=== PATIENT | female | born 1995 | race African-American/Black ===

== ENCOUNTER 2024-03-27 07:22 | Outpatient (CLI) | payer BC ==
[~2024-03-27] VITALS: Ht 162.6 cm; Wt 121.4 kg
[2024-03-27] MEDS ORDERED: NS 1,000 ML IV ONE (07:45)
[2024-03-27 07:47] LABS: COLLECTION METHOD CLEAN CATCH
[2024-03-27 07:50] LABS: BASO # 0.1 K/mm3 (0.0-0.2); BASO % 0.4 % (0.0-2.0); EOS # 0.2 K/mm3 (0.0-0.7); EOS % 0.9 % (0.0-4.0); GRAN # 15.8 K/mm3 (1.4-6.5); HEMATOCRIT 45.4 % (37.0-47.0); LYMPH # 1.8 K/mm3 (1.2-3.4); LYMPH % 9.2 % (20.0-51.0); MEAN CELL VOLUME 89 fl (80.0-100.0); MEAN CORPUSCULAR HEMOGLOBIN 30 pg (27-31); MEAN CORPUSCULAR HGB CONC 33 g/dl (33.0-37.0); MEAN PLATELET VOLUME 9.3 fl (7.4-10.4); MONO # 1.2 K/mm3 (0.1-0.6); MONO % 6.2 % (1.7-9.3); PLATELET COUNT 388 K/mm3 (130-400); RED BLOOD COUNT 5.08 M/mm3 (4.10-5.30); REDCELL DISTRIBUTION WIDTH-CV 14.2 % (11.5-14.5)
[2024-03-27 07:57] LABS: URINE APPEARANCE CLEAR (CLEAR/HAZY); URINE BLOOD 3+ (NEGATIVE); URINE COLOR YELLOW (YELLOW); URINE GLUCOSE NEGATIVE (NEGATIVE); URINE KETONE NEGATIVE (NEGATIVE); URINE NITRATE NEGATIVE (NEGATIVE); URINE PROTEIN(semi-quant) NEGATIVE (NEGATIVE); URINE UROBILINOGEN 0.2 E.U/dL (0.2-1.0)
[2024-03-27 08:06] LABS: ALBUMIN 3.7 g/dL (3.5-5.0); BILIRUBIN,TOTAL 0.5 mg/dL (0.2-1.2); CALCIUM 9.8 mg/dL (8.4-10.2); CREATININE, serum 0.95 mg/dL (0.57-1.11); POTASSIUM 4.1 mEq/L (3.5-4.5); TOTAL PROTEIN 6.7 g/dl (6.2-8.1)
[2024-03-27] MEDS ORDERED: methylPREDNISolone Sod Succ 125 MG/2 ML VIAL IV ONE (08:15)
[2024-03-27] MEDS ORDERED: Ondansetron 4 MG/2 ML VIAL IV ONE (08:15)
[2024-03-27] MEDS ORDERED: diphenhydrAMINE 50 MG/ML 1 ML VIAL IV ONE (08:15)
[2024-03-27] MEDS ORDERED: Morphine 4 MG/ML VIAL IV ONE ×2 (08:15→09:45)
[2024-03-27] MEDS ORDERED: NS 100 ML IV SCH (08:16)
[2024-03-27] MEDS ORDERED: Iohexol 300 - 100 ML VIAL IV ONE (08:16)
[2024-03-27] MEDS ORDERED: droPERidol 2.5 MG/ML 2 ML VIAL IV ONE (09:45)
[2024-03-27] MEDS ORDERED: droPERidol 2.5 MG/ML 2 ML VIAL IV PRN (10:00)
[2024-03-27] MEDS ORDERED: HYDROmorphone 1 MG/1 ML SYRINGE [PACU/SDC ONLY] IV PRN (10:00)
[2024-03-27] MEDS ORDERED: Ondansetron 4 MG/2 ML VIAL IV PRN ×3 (10:00→12:15)
[2024-03-27] MEDS ORDERED: hydrALAZINE 20 MG/ML 1 ML VIAL IV PRN (10:00)
[2024-03-27] MEDS ORDERED: Scopolamine 1 MG Delivered 3-Day PATCH TD SCH (10:00)
[2024-03-27] MEDS ORDERED: LR 1,000 ML IV SCH (10:00)
[2024-03-27] MEDS ORDERED: fentaNYL 50 MCG/ML 2 ML VIAL ONE (10:25)
[2024-03-27] MEDS ORDERED: Lidocaine PF 2% (20 MG/ML) 5 ML VIAL ONE (10:25)
[2024-03-27] MEDS ORDERED: Ondansetron 4 MG/2 ML VIAL ONE (10:26)
[2024-03-27] MEDS ORDERED: Ketorolac 30 MG/ML VIAL ONE (10:26)
[2024-03-27] MEDS ORDERED: Glycopyrrolate 0.2 MG/ML 1 ML VIAL ONE (10:26)
[2024-03-27] MEDS ORDERED: NS 20 ML IV ONE (10:26)
[2024-03-27] MEDS ORDERED: dexAMETHasone 10 MG/ML VIAL ONE (10:26)
[2024-03-27] MEDS ORDERED: Acetaminophen 325 MG TAB PO PRN (11:00)
[2024-03-27] MEDS ORDERED: Naloxone 0.4 MG/ML VIAL IV PRN (11:00)
[2024-03-27] MEDS ORDERED: Hyoscyamine 0.125 MG Sublingual TAB SL PRN (11:00)
[2024-03-27] MEDS ORDERED: Iohexol 300 - 10 ML VIAL URETER -L ONE (11:17)
[2024-03-27] MEDS ORDERED: Furosemide 40 MG/4 ML VIAL ONE (11:22)
[2024-03-27] MEDS ORDERED: Lidocaine 2% (20 MG/ML) 20 ML UROJET UR ONE (11:26)
[2024-03-27] MEDS ORDERED: Acetaminophen 500 MG TAB PO SCH ×2 (11:57)
[2024-03-27 12:05] VITALS: BP 143/91; PULSE 56; TEMP 98.3
[2024-03-27] MEDS ORDERED: D5NS & 20 mEq KCl 1,000 ML IV SCH (12:15)
[2024-03-27] MEDS ORDERED: Morphine 4 MG/ML VIAL IV PRN (12:15)
[2024-03-27 12:20] VITALS: BP 142/85; PULSE 48
--- NOTE | 2024-03-27 12:21 | NUR ---
Pt arrived to the floor from [place]. She is alert and oriented. She is stating her pain is around 4/10, but that it is her normal pain from fibromyalgia. Pt states right now her shoulders are what is bothering her the most. Pt does have a friend with her in the room. Gave pt some applesauce, water and juice. Pt not wanting lunch at this time. VSS. Discussed plan of care and plan for discharge
[2024-03-27 12:35] VITALS: BP 145/81; PULSE 50
--- NOTE | 2024-03-27 12:39 | NUR ---
Pt has tolerated ice water, apple juice and apple sauce with no complaints. Pt reported that she has had kidney stones in the past and is comfortable going home as well as ready to go home. Pt has voided without difficulty. VSS, informed her that i will work on paperwork
--- NOTE | 2024-03-27 13:08 | NUR ---
Reviewed discharge instructions with pt. All questions answered. INT removed from right AC and pt escorted out
== END 2024-03-27 13:00 | disposition home or self-care (01) ==
LOC: COL.ER 07:22 → SDCO 07:22 → COL.ER 10:15 → SDCO 10:15 → EDSTATUS 11:36 → SDCO 13:00
PROVIDERS: Personal Emergency Response Attendant
DX: N20.1 Calculus of ureter (principal); Z87.891 Personal history of nicotine dependence
CPT/HCPCS: C1769; J0690; J1100; J1200; J1790; J1885; J1940; J2270; J2405; J2704; J2765; J2919; J3010; J7030; Q9967